=== PATIENT | male | born 1970 | race Caucasian/White ===

== ENCOUNTER 2016-05-07 16:00 | Emergency (ER) | payer OTHER ==
[~2016-05-07] VITALS: Ht 195.6 cm; Wt 150.0 kg
[~2016-05-07 16:00] MED LIST: BUPR75 PO; OXYC10 PO; PREG50 PO; TIZA4TAB4 PO
[2016-05-07] MEDS ORDERED: KETOROLAC TROMETHAMINE 60 MG/2 ML VIAL IM ONE (18:00)
[2016-05-07 18:48] VITALS: BP 136/79
== END 2016-05-07 19:32 | disposition home or self-care (01) ==
LOC: EMS 19:27
DX: S93.402A Sprain of unspecified ligament of left ankle, initial encounter (principal); G89.29 Other chronic pain; I10 Essential (primary) hypertension; M54.9 Dorsalgia, unspecified; Z88.8 Allergy status to other drugs, medicaments and biological substances
CPT/HCPCS: 73610; 96372; 99284; J1885